=== PATIENT | female | born 1990 | race Asian ===

== ENCOUNTER 2023-04-10 09:34 | Emergency (ER) | payer BC, OTHER ==
[~2023-04-10] VITALS: Ht 154.9 cm; Wt 62.6 kg
[2023-04-10 09:49] VITALS: O2SAT 99
== END 2023-04-10 10:26 | disposition home or self-care (01) ==
LOC: ER 09:34
DX: S92.511A Displaced fracture of proximal phalanx of right lesser toe(s), initial encounter for closed fracture (principal); W23.0XXA Caught, crushed, jammed, or pinched between moving objects, initial encounter; Y93.89 Activity, other specified; Y92.89 Other specified places as the place of occurrence of the external cause; Y99.8 Other external cause status
CPT/HCPCS: 73630; A4663